=== PATIENT | male | born 2000 | race Caucasian/White ===

== ENCOUNTER 2024-01-24 16:49 | Emergency (ER) | payer OTHER ==
[~2024-01-24] VITALS: Ht 182.9 cm; Wt 69.9 kg
[2024-01-24 20:47] LABS: Trichomonas vaginalis (AMP) NOT DETECTED (NEGATIVE)
[2024-01-24 21:11] LABS: GC DNA AMPLIFICATION NEGATIVE (NEGATIVE)
[2024-01-24 21:15] VITALS: BP 126/77; TEMP 97.5; O2SAT 97
== END 2024-01-24 21:21 | disposition home or self-care (01) ==
LOC: M ED 16:49
DX: N50.3 Cyst of epididymis (principal); N50.812 Left testicular pain; J45.909 Unspecified asthma, uncomplicated; F17.200 Nicotine dependence, unspecified, uncomplicated